=== PATIENT | male | born 1965 | race Caucasian/White ===

== ENCOUNTER 2017-07-26 16:36 | Emergency (ER) | payer SELFPAY ==
[2017-07-26 16:56] VITALS: BP 133/88
--- NOTE | 2017-07-26 16:58 | UC ---
Shoulder Pain HPI - HPI Summary HPI Summary: 52 year old male presents with complains of right shoulder pain. - History of Current Complaint Chief Complaint: UCUpperExtremity Stated Complaint: RT SHOULDER INJURY Time Seen by Provider: 07/26/17 16:57 Hx Obtained From: Patient Onset/Duration: Sudden Onset Timing: Constant Severity Initially: Moderate Severity Currently: Moderate Pain Scale Used: 0-10 Numeric - 7 Character: Sharp Aggravating Factor(s): Movement, Lifting, Flexion, Internal Rotation, External Rotation Associated Signs And Symptoms: Positive: Negative - Allergies/Home Medications Allergies/Adverse Reactions: Allergies Allergy/AdvReac Type Severity Reaction Status Date / Time No Known Allergies Allergy Verified 07/26/17 16:56 Home Medications: Home Medications Ibuprofen TAB* [Advil TAB*] 200 mg PO Q6H PRN 07/26/17 [History Confirmed ] PMH/Surg Hx/FS Hx/Imm Hx Previously Healthy: Yes - Surgical History Surgical History: Yes Surgery Procedure, Year, and Place: Left shoulder 2015 - Family History Known Family History: Positive: None - Social History Alcohol Use: None Substance Use Type: None Smoking Status (MU): Former Smoker Have You Smoked in the Last Year: Yes When Did the Patient Quit Smoking/Using Tobacco: 07/16/17 Review of Systems Constitutional: Negative Skin: Negative Eyes: Negative ENT: Negative Respiratory: Negative Cardiovascular: Negative Gastrointestinal: Negative Genitourinary: Negative Motor: Negative Neurovascular: Negative Musculoskeletal: Other: - right bicep/shoulder pain. Neurological: Negative Psychological: Negative All Other Systems Reviewed And Are Negative: Yes Physical Exam Triage Information Reviewed: Yes Vital Signs: Initial Vital Signs Temp 36.9 C 07/26/17 16:51 Pulse 61 07/26/17 16:51 Resp 18 07/26/17 16:51 BP 133/88 07/26/17 16:51 Pulse Ox 98 07/26/17 16:51 Vital Signs Reviewed: Yes Eye Exam: Normal ENT Exam: Normal Dental Exam: Normal Neck exam: Normal Neck: Positive: 1 Respiratory Exam: Normal Cardiovascular Exam: Normal Abdominal Exam: Normal Musculoskeletal: Positive: Other: - right bicep/shoulder pain Neurological Exam: Normal Psychological Exam: Normal Skin Exam: Normal Shoulder Course/Dx - Differential Dx/Diagnosis Provider Diagnoses: right shoulder/bicep pain Discharge - Discharge Plan Condition: Stable Disposition: HOME Prescriptions: Meloxicam [Mobic] 7.5 mg PO BID #30 tab Methocarbamol TAB* [Robaxin 500 MG TAB*] 500 mg PO TID PRN #30 tab PRN Reason: Spasms Patient Education Materials: Shoulder Pain (ED) Referrals: Ant Caicedo MD [Medical Doctor] - Marino Broussard MD [Primary Care Provider] -
--- NOTE | 2017-07-26 18:16 | RAD ---
Indication: RIGHT shoulder pain post fall. Anterior pain. Comparison: No relevant prior exams available on the [facility] P[facility] for comparison. Technique: Internal rotation AP, external rotation Grashey, scapular Y, axillary views RIGHT shoulder Report: Normal acromioclavicular and glenohumeral joint alignment. 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 Possible previous healed fractures at the mid and distal RIGHT clavicle. No acute fracture evident. Unremarkable soft tissue contours. IMPRESSION: 1. No acute fracture evident. Negative for dislocation. 2. 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
== END 2017-07-26 18:31 | disposition home or self-care (01) ==
LOC: UCCORT 16:36
DX: M25.511 Pain in right shoulder (principal); Z87.891 Personal history of nicotine dependence
CPT/HCPCS: 99203; G0463